=== PATIENT | female | born 1970 | race Caucasian/White ===

== ENCOUNTER → 2019-04-15 07:41 | Outpatient (CLI) | payer BC, SELFPAY ==
[2019-04-15 08:12] LABS: Absolute Lymphocyte Count 2.05 X10^3/uL (0.83-4.51); Absolute Neutrophil Count 4.4 X10^3/uL (2.0-7.7); Basophil# 0.04 X10^3/uL; Basophil% 0.5 % (0-1); Eosinophil# 0.24 X10^3/uL; Eosinophils% 3.2 % (0-5); Hematocrit 41.7 % (37-47); Hemoglobin 13.8 g/dL (12.0-15.0); Lymphocyte # 2.05 X10^3/ul (4.0); Lymphocyte % 27.7 % (19-41); Mean Corp Hgb Conc 33.1 g/dL (32-36); Mean Corpuscular Hgb 29.7 pg (27.0-32.0); Mean Corpuscular Volume 89.9 fL (81-99); Mean Platelet Vol. 9.7 fl (6.2-12.0); Monocyte# 0.62 X10^3/uL; Monocyte% 8.4 % (0-10); NRBC Flagged by Analyzer 0 % (0-5); Neutrophil # 4.41 X10^3/uL (2.7-7.7); Neutrophil % 59.7 % (47-70); Platelet Count 269 K/mm3 (150-450); RBC Distribution Width CV 12.6 % (11.6-14.6); RBC Distribution Width SD 41.7 fl (35.1-43.9); Red Blood Count 4.64 M/mm3 (4.2-5.4); White Blood Count 7.4 K/mm3 (4.4-11.0)
[2019-04-15 08:53] LABS: AST(SGOT) 25 U/L (15-37); Alanine Aminotransfer ALT/SGPT 35 U/L (13-56); Albumin, Serum 3.7 g/dL (3.2-5.0); Alkaline Phosphatase 56 U/L (45-117); Anion Gap 7 (5-15); BUN 10 mg/dL (7-18); BUN/Creat Ratio 12.9 RATIO (10-20); Calcium,Total 8.7 mg/dL (8.5-10.1); Chloride 106 mmol/L (98-107); Cholesterol 178 mg/dL (200); Creatinine, Serum 0.78 mg/dL (0.55-1.02); EST Glomerular Filtration Rate 84 mL/min (>60); Est Glom Filt Rate - Afr Amer 101 mL/min (>60); Globulin 3.7 g/dL (2.2-4.2); Glucose 78 mg/dL (74-106); High Density Lipoprotein 84 mg/dL; Protein, Total 7.4 g/dL (6.4-8.2); Sodium Level 141 mmol/L (136-145); Thyroid Stim Hormone (TSH) 1.12 uIU/mL (0.358-3.74); Triglycerides 57 mg/dL; Very Low Density Lipoprotein 11 mg/dL (5-40)
== END ==
PROVIDERS: Family Provider Family Medicine; PCP Family Medicine; Referring Provider Family Medicine; Visit Provider Family Medicine
DX: G47.9 Sleep disorder, unspecified (principal); J45.909 Unspecified asthma, uncomplicated; R51 Headache; R53.82 Chronic fatigue, unspecified
CPT/HCPCS: 36415; 80053; 80061; 84443; 85025

== ENCOUNTER → 2022-03-23 | Outpatient (CLI) | payer BC, SELFPAY ==
--- NOTE | 2022-03-23 07:25 | BI_ITS ---
MAMMOGRAPHY - BILATERAL SCREENING REASON FOR EXAM: Female, 51 years old. Routine annual screening examination. PERTINENT HISTORY: Aunt with breast cancer. TECHNIQUE: Digital bilateral breast valeri (3D mammographic acquisition) in the CC and MLO projections. 2-D mediolateral oblique (MLO) and craniocaudad (CC) views of both breasts were obtained. CAD: Full Field Digital Mammography with Computer Added Detection was performed. COMPARISON: Comparison is made with prior study of 05/31/2017 and 08/27/2015. FINDINGS: Breast Composition: The breasts are heterogeneously dense, which may obscure small masses. There are no dominant masses or suspicious calcifications. Stable small benign-appearing bilateral axillary lymph nodes. No other significant abnormalities are identified. There has been no significant change since the prior study. BI/SCRN MAMM (CAD)W/VALERI BILAT IMPRESSION: Stable bilateral screening mammogram. Yearly follow-up mammogram recommended. (A) ASSESSMENT CATEGORY: BIRADS Category 2: Benign. A letter regarding these results will be sent to the patient by the facility within 30 days. Approximately 10% of breast cancers are not detected by mammography. A normal mammogram should not delay biopsy of a clinically suspicious abnormality. [id number] Electronically Signed: Javier Esquivel MD at 8:09 EDT ,
== END | disposition home or self-care (01) ==
PROVIDERS: PCP Family Medicine
DX: Z12.31 Encounter for screening mammogram for malignant neoplasm of breast (principal)
CPT/HCPCS: 77063; 77067

== ENCOUNTER 2022-03-24 20:28 | Emergency (ER) | payer BC, SELFPAY ==
[2022-03-24 20:31] VITALS: BP 149/89; PULSE 76; RESP 17; TEMP 37.1; O2SAT 97; BMI 28.1
[2022-03-24] MEDS: DiphenhydrAMINE 25 MG Capsule 50 MG PO (21:58)
[2022-03-24] MEDS: predniSONE 20 MG Tablet 60 MG PO (21:59)
[2022-03-24] MEDS: Famotidine 20 MG Tablet PO (21:59)
--- NOTE | 2022-03-24 22:19 | EX.ED.DYSGE1 ---
HPI History of Present Illness Chief Complaint: Allergic Reaction Informant: patient Narrative Narrative: Bee sting right hand 90 minutes ago. Swelling hand itching up the arm. No lip or tongue swelling. No chest tightness. No trouble swallowing. History of anaphylaxis in 2008. Did not use epinephrine with concern it being . She brought herself here. Prior similar symptoms: Yes [facility] Medical History Active asthma Home Medications albuterol sulfate 90 mcg/actuation aerosol inhaler 2 puff inhalation Q6H PRN 12/05/19 [History Last Taken Unknown] fluticasone furoate 27.5 mcg/actuation nasal spray,suspension (Flonase Sensimist) 2 spray intranasal DAILY 12/05/19 [History Last Taken Unknown] norethindrone (contraceptive) 0.35 mg tablet (Brionna) 0.35 mg PO QDAY #84 tabs 03/19/20 [Rx Last Taken Unknown] famotidine 20 mg tablet (Pepcid) 20 mg PO BID #10 tabs 03/24/22 [Rx Last Taken Unknown] prednisone 20 mg tablet 60 mg PO DAILY #12 tabs 03/24/22 [Rx Last Taken Unknown] Allergy/AdvReac Type Severity Reaction Status Date / Time bee pollen Allergy Anaphylaxis Verified 03/24/22 20:31 Surgical History History of cholecystectomy Social History Smoking Status: Never smoker alcohol intake: current alcohol intake frequency: holidays/special occasions only seatbelt use: always do you feel safe at home: Yes ROS ROS ED Constitutional Constitutional ED: Denies chills, fever(s) or sweats Eyes Eyes: Denies change in vision ENT ENT ED: Denies dysphagia or sore throat Cardiovascular Cardiovascular: Denies chest pain, leg edema, palpitations or racing heartbeat Respiratory/Chest Respiratory/Chest: Denies cough, dyspnea or dyspnea on exertion Gastrointestinal Gastrointestinal: Denies abdominal pain, diarrhea, nausea or vomiting Genitourinary Genitourinary ED: Denies dysuria, hematuria or urinary frequency Musculoskeletal Musculoskeletal: Reports extremity pain and other Details: Right hand swelling with itching ; Denies back pain or neck pain Integumentary Denies rash or wounds Neurologic Neurologic: Denies headache(s), paresthesias or weakness EXAM Physical Exam Const Vital Signs: 03/24/22 20:31 03/24/22 22:29 03/24/22 23:56 Temperature 98.7 F Temperature Source Temporal Pulse Rate 76 76 Respiratory Rate 17 15 16 Blood Pressure 149/89 H Blood Pressure Mean 109 Pulse Ox 97 97 Oxygen Delivery Method Room Air Room Air Positive well nourished and well developed General Appearance ED: well developed and NAD HEENT Reports moist mucous membranes HEENT Narrative: Airway patent no lip or tongue swelling. No stridor. normocephalic and atraumatic Eyes PERRL, EOMs intact bilaterally and conjunctivae normal General Eye ED: Yes normal appearance of both eyes Neck no lymphadenopathy and supple General: Negative for tenderness Chest Wall Chest: Negative for tenderness Resp normal respiratory effort and normal air movement Effort and Inspection: symmetric chest movement; Negative for respiratory distress Cardio regular rate, regular rhythm and no murmurs Peripheral Pulses: pulses 2+ throughout GI normal to inspection, nondistended, normoactive bowel sounds and non-tender Palpation: Negative for guarding or rebound tenderness present Back/Spine no CVA tenderness and no thoracic nor lumbar tenderness Extremity Extremity Narrative: Right upper extremity: Swelling to right hand, no stinger present noted puncture at the dorsum of the proximal phalanx of the index finger. There is erythema up the arm to the shoulder. General Extremety ED: Negative for edema or tenderness General Extremity: Negative for edema Neuro oriented x3 and no sensory deficits noted Sensorium / Orientation: awake and alert Skin no rashes or lesions noted and no wounds MDM MDM MDM Narrative Medical decision making narrative: No signs of anaphylaxis 90 minutes from incident. Local swelling redness of the right arm. Oral prednisone, Pepcid, Benadryl was given monitored no progression of symptoms. Prescription for prednisone and Pepcid written she has Benadryl at home. Discussed writing for epinephrine pen however she declines it stating is too expensive. She understands she can call 911 if anaphylaxis occurs in the future. She will follow-up as an outpatient. All questions were answered. Discharge Plan Triage Chief Complaint: Allergic Reaction ED Provider: Emery Calderon Dx/Rx/DC Orders Clinical Impression: Local reaction to bee sting, Localized swelling of finger of right hand Prescriptions: New prednisone 20 mg tablet 60 mg PO DAILY Qty: 12 0RF famotidine [Pepcid] 20 mg tablet 20 mg PO BID Qty: 10 0RF No Action Flonase Sensimist 27.5 mcg/actuation spray,suspension 2 spray INTRANASAL DAILY Rx Instructions: into each nostril albuterol sulfate 90 mcg/actuation HFA aerosol inhaler 2 puff INHALATION Q6H PRN norethindrone (contraceptive) [Brionna] 0.35 mg tablet 0.35 mg PO QDAY Qty: 84 4RF Rx Instructions: start day 1 of menstrual cycle Primary Care Provider: FLORENCE TAVERA Referrals: Tesfaye Lopes DO [Med Staff - Upholstery Repairer] - 1-2 Weeks Disposition Disposition: Home, Self Care Discharge Date/Time: 03/24/22 23:57
[2022-03-24 22:29] VITALS: RESP 15
[2022-03-24 23:56] VITALS: PULSE 76; RESP 16; O2SAT 97
== END 2022-03-24 23:57 | disposition home or self-care (01) ==
PROVIDERS: Emergency Provider Emergency Medicine; Visit Provider Emergency Medicine
DX: T63.444A Toxic effect of venom of bees, undetermined, initial encounter (principal); J45.909 Unspecified asthma, uncomplicated
CPT/HCPCS: 99282

== ENCOUNTER → 2022-09-30 | Outpatient (CLI) | payer BC, SELFPAY ==
[2022-10-02 00:07] LABS: Chlamydia By Nucleic Acid AMP Negative (Negative)
[2022-10-02 08:29] LABS: Gonococcus By Nucleic Acid AMP Negative (Negative)
[2022-10-05 16:45] LABS: HPV APTIMA, High Risk Negative (Negative)
== END | disposition home or self-care (01) ==
LOC: LABSPEC 10:24
PROVIDERS: Referring Provider Nurse Practitioner Women's Health; Visit Provider Nurse Practitioner Women's Health
DX: Z12.4 Encounter for screening for malignant neoplasm of cervix (principal); Z11.3 Encounter for screening for infections with a predominantly sexual mode of transmission
CPT/HCPCS: 87491; 87591; 87624; 88175; G0145

== ENCOUNTER → 2023-03-19 | Outpatient (CLI) | payer BC, SELFPAY ==
--- NOTE | 2023-03-19 14:30 | EMB_PTH ---
PATIENT: BELLA WARD LOC: [facility] U#:[id number] AGE/SX: 52/F ROOM: RE03/19/[address]: Kathie Holt CNM : 1970 BED: DIS: 03/19/2023 SPEC #: [id number] RECD: 03/19/23 16:23 STATUS: PEDRO SONIA #: [id number] SANDRA: 03/19/23 14:[address]: Kathie Holt DEPT: SURGICAL PATHOLOGY RECD BY: Diane Saunders Tissues: Endometrium, NOS Procedures: Surgery Specimen Level IV HEADER OPERATION: Endometrial biopsy PRE-OP DIAGNOSIS: Postmenopausal bleeding TISSUE SUBMITTED: Endometrial tissue MICROSCOPIC DIAGNOSIS Endometrial biopsy: Secretory endometrium. SJ:felicia 03/23/2023 MICROSCOPIC DESCRIPTION Slides are reviewed. GROSS DESCRIPTION Received is one container labeled with the patient's name and not further designated. The specimen consists of multiple fragments of hemorrhagic soft tissue that in aggregate measure 1.5 x 0.7 x 0.1 cm. The specimen is totally submitted in one cassette. / TAZ:felicia 03/22/2023 TC:5 CPT: 15478
== END | disposition home or self-care (01) ==
LOC: LABSPEC 03-22 11:38
PROVIDERS: Visit Provider Advanced Practice Midwife
DX: N95.0 Postmenopausal bleeding (principal)
CPT/HCPCS: 88305

== ENCOUNTER → 2023-03-25 | Outpatient (CLI) | payer BC, SELFPAY ==
--- NOTE | 2023-03-25 07:03 | BI_ITS ---
MAMMOGRAPHY - BILATERAL SCREENING REASON FOR EXAM: Female, 52 years old. Routine annual screening examination. PERTINENT HISTORY: Aunt with breast cancer. TECHNIQUE: Digital bilateral breast valeri (3D mammographic acquisition) in the CC and MLO projections. 2-D mediolateral oblique (MLO) and craniocaudad (CC) views of both breasts were obtained. CAD: Full Field Digital Mammography with Computer Added Detection was performed. COMPARISON: Comparison is made with prior study March 23, 2022 and May 31, 2017. FINDINGS: Breast Composition: The breasts are heterogeneously dense, which may obscure small masses. There are no dominant masses or suspicious calcifications. Stable small benign-appearing bilateral axillary lymph nodes. No other significant abnormalities are identified. There has been no significant change since the prior study. BI/SCRN MAMM (CAD)W/VALERI BILAT IMPRESSION: Stable bilateral screening mammogram. Yearly follow-up mammogram recommended. (A) ASSESSMENT CATEGORY: BIRADS Category 2: Benign. A letter regarding these results will be sent to the patient by the facility within 30 days. Approximately 10% of breast cancers are not detected by mammography. A normal mammogram should not delay biopsy of a clinically suspicious abnormality. [id number] Electronically Signed: Javier Esquivel MD at 8:39 EDT ,
== END | disposition home or self-care (01) ==
LOC: OPBI 07:02
PROVIDERS: PCP Family Medicine; Referring Provider Nurse Practitioner Women's Health; Visit Provider Nurse Practitioner Women's Health
DX: Z12.31 Encounter for screening mammogram for malignant neoplasm of breast (principal)
CPT/HCPCS: 77063; 77067

== ENCOUNTER → 2023-04-05 | Outpatient (CLI) | payer BC, SELFPAY ==
--- NOTE | 2023-04-05 16:59 | US_ITS ---
STUDY: ULTRASOUND OF THE FEMALE PELVIS - COMPLETE REASON FOR EXAM: Female, 52 years old. PMB LMP: Patient is postmenopausal. TECHNIQUE: Transvaginal TECHNICAL QUALITY: Adequate. COMPARISON: None. FINDINGS: The uterus is anteverted and is in a midline position. The uterus measures 7.6 cm x 5.1 cm x 4.7 cm. Normal uterine cervix. The endometrium measures 2.9 mm in thickness, and is hyperechoic. There is a 1.7 cm x 1.3 cm x 1.1 cm echogenic nodule in the endometrium with vascularity. Biopsy is recommended. There is no demonstrated myometrial mass. I.U.D. - The patient does not have an I.U.D. The right ovary is visualized. The right ovary measures 2.4 cm x 2 cm x 1.3 cm. There is no right ovarian cyst or ovarian mass. There is no visualized right adnexal mass or complex lesion. There is normal arterial and normal venous vascularity. The left ovary is visualized. The left ovary measures 2.9 cm x 1.5 cm x 1.4 cm. A dominant follicle is seen in the left ovary measuring 1.2 cm x 1.57 x 1.3 centimeter. There is no visualized left adnexal mass or complex lesion. There is normal arterial and normal venous vascularity. There is no fluid in the cul-de-sac. US/Transvaginal Non- IMPRESSION: 1.7 cm x 1.3 cm x 1.1 cm echogenic nodule in the endometrium with vascularity. Biopsy recommended. Electronically Signed: Javier Esquivel MD at 10:47 EDT ,
== END | disposition home or self-care (01) ==
LOC: US 16:57
PROVIDERS: PCP Family Medicine; Referring Provider Advanced Practice Midwife; Visit Provider Advanced Practice Midwife
DX: N95.0 Postmenopausal bleeding (principal)
CPT/HCPCS: 76830

== ENCOUNTER 2023-06-15 06:02 | Day surgery (SDC) | payer BC, SELFPAY ==
[2023-06-07 08:17] LABS: Absolute Lymphocyte Count 2.02 X10^3/uL (0.83-4.51); Absolute Neutrophil Count 2.9 X10^3/uL (2.0-7.7); Basophil# 0.03 X10^3/uL; Basophil% 0.5 % (0-1); Eosinophil# 0.19 X10^3/uL; Eosinophils% 3.3 % (0-5); Hematocrit 38.6 % (37-47); Lymphocyte # 2.02 X10^3/ul (0.83-4.51); Lymphocyte % 34.8 % (19-41); Mean Corp Hgb Conc 33.7 g/dL (32-36); Mean Corpuscular Hgb 29.5 pg (27.0-32.0); Mean Corpuscular Volume 87.7 fL (81-99); Mean Platelet Vol. 10.2 fl (6.2-12.0); Monocyte# 0.65 X10^3/uL; Monocyte% 11.2 % (0-10); NRBC Flagged by Analyzer 0 % (0-5); Neutrophil % 49.9 % (47-70); Platelet Count 234 K/mm3 (150-450); RBC Distribution Width SD 41.4 fl (35.1-43.9); White Blood Count 5.8 K/mm3 (4.4-11.0)
--- NOTE | 2023-06-14 07:30 | EMB_PTH ---
PATIENT: BELLA WARD LOC: [facility] [place] U#:[id number] AGE/SX: 52/F ROOM: RE06/15/[address]: Dr. Fide Berry MD : 1970 BED: DIS: 06/15/2023 SPEC #: [id number] RECD: 06/15/23 12:12 STATUS: PEDRO SONIA #: [id number] SANDRA: 06/14/23 07:[address]: Fide Berry DEPT: SURGICAL PATHOLOGY RECD BY: Saida Blanc ENTERED: 06/15/23 12:12 SP TYPE: ENDOM BX/C OTHR DR: FLORENCE TAVERA MD Tissues: Endometrium, NOS Procedures: Surgery Specimen Level IV HEADER OPERATION: Hysteroscopy, D & C PRE-OP DIAGNOSIS: Postmenopausal bleeding TISSUE SUBMITTED: Endometrial curettings MICROSCOPIC DIAGNOSIS Endometrium, curettings: Scant strips of benign superficial glandular and squamous mucosa. AM:felicia 06/16/2023 MICROSCOPIC DESCRIPTION Slides are reviewed. GROSS DESCRIPTION Received in fixative is one container labeled with the patient's name and designated endometrial curettings. The specimen consists of multiple irregular fragments of light to dark olsen soft tissue that in aggregate measure 1.0 x 0.3 x 0.1 cm. The specimen is totally submitted in one cassette. / AM:felicia 06/15/2023 TC:5 CPT: 06459
[2023-06-15 06:35] VITALS: BP 122/72; PULSE 75; RESP 16; TEMP 36.4; O2SAT 96; BMI 29.1
[2023-06-15] MEDS: Lactated Ringers 1,000 ML 15 ML IV (06:41)
--- NOTE | 2023-06-15 07:22 | HP.PCM_ITS ---
History and Physical Date of Admission: 06/15/23 Vital Signs 04/06/2310:46 05/31/2311:20 05/31/2311:21 Height 5 ft 8 in 5 ft 8 in 5 ft 8 in Weight: 196 lb 6 oz BMI 29.8 BP 135/85 H Intake Visit Reasons: D&C symphion Credit Card Specialist Required: No Is patient in pain?: No Allergies bee pollen Allergy (Verified 05/31/23 11:20) Anaphylaxis Medications albuterol sulfate 90 mcg/actuation aerosol inhaler 2 puff inhalation Q6H PRN 07/14 [History Confirmed 05/31/23] fluticasone furoate 27.5 mcg/actuation nasal spray,suspension (Flonase Sensimist) 2 spray intranasal DAILY 12/05/19 [History Confirmed 05/31/23] montelukast 10 mg tablet (Singulair) 10 mg PO DAILY 09/30/22 [History Confirmed 05/31/23] beclomethasone dipropionate 40 mcg/actuation HFA breath activated aerosol (Qvar RediHaler) 1 inh inhalation BID 03/19/23 [History Confirmed 05/31/23] clonidine HCl 0.1 mg tablet 0.1 mg PO BID 03/19/23 [History Confirmed 05/31/23] Is last menstrual period known: No Post menopausal: Yes Patient : No : No PFSH Medical History Active asthma Surgical History History of cholecystectomy Family History Mother Cancer Melanoma Social History housing: house number of children: 2 current occupational status: employed 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 Female Reproductive History Menopausal Symptoms: No night sweats History 3 Elective abortions Hx Para 2 Spontaneous abortions Hx # Term Pregnancies Ectopic pregnancies Hx # Pregnancies Multiple births # of living children 2 ROS Const Constitutional: Denies fatigue, night sweats, weight gain or weight loss ENT ENT: Reports system reviewed and no additional complaints, except as documented Cardio Card: Denies chest pain Resp Resp: Denies cough or dyspnea GI GI: Reports as per HPI; Denies abdominal pain, constipation, nausea or vomiting : Denies nipple discharge, urinary frequency, urinary incontinence, urinary hesitancy, urinary urgency, vaginal discharge, vaginal dryness, vaginal odor or vaginal pruritus Musc Musc: Denies arthralgias, back pain or muscle weakness Skin Skin/Breast: Denies alopecia, change in hair, dry skin, breast mass, breast pain, breast skin changes or nipple discharge Neuro Neuro: Reports system reviewed and no additional complaints, except as documented Psych Psych: Reports system reviewed and no additional complaints, except as documented Endo Endo: Denies cold intolerance, excessive sweating, heat intolerance or polydipsia Campos/Lymph Hematologic/Lymphatic: Denies easy bleeding, Denies easy bruising and Denies lymphadenopathy Exam Const General: cooperative, healthy appearing, comfortable and no acute distress Orientation: alert [facility] Head: normal to inspection and normocephalic Ears: hearing grossly normal bilaterally and external ears normal Nose: external nose normal and nares normal Face and sinus: normal facial exam Neck Neck: normal visual inspection and no lymphadenopathy Thyroid: thyroid normal Chest Chest palpation & inspection: normal inspection of the chest Resp Effort & Inspection: normal respiratory effort Auscultation: clear to auscultation bilaterally Cardio Rate: regular rate Rhythm: regular rhythm Heart Sounds: S1 normal and S2 normal GI Inspection: normal to inspection and non-distended Palpation: soft and no hepatosplenomegaly Musc Other: gross motor intact no deficits, full bilateral strength Skin General: no rashes or lesions noted Neuro General: patient alert, patient awake, moves all extremities and no focal motor deficits Motor: muscle tone normal throughout Extrem General: normal to inspection and no pedal edema Psych Appearance: grossly normal Mental Status: mental status grossly normal Affect: normal affect Speech and Movement: speech and movement normal Coding Level of Care Code No Charge Diagnoses Postmenopausal bleeding N95.0 Climacteric N95.1 Assessment and Plan Assessment and Plan (1) Postmenopausal bleeding: Status: Acute Comment: polypoid lining- plan d and c hysteroscopy symphion (2) Climacteric: Status: Acute Comment: clonadine per neurologist Plan After discussing the patient's diagnosis and treatment plan options, patient wishes to proceed with surgical management. I have discussed with the patient the risks, benefits, and alternatives of the procedure which include but are not limited to risks of anesthesia, bleeding, infection, possible damage to bowel, bladder, or surrounding vasculature which could lead to additional surgery to evaluate any complications. Patient agrees to procedure and wishes to proceed. ACOG/uptodate references given for additional information regarding procedure. UPDATE- I have seen the patient and performed any clinically relevant updates to the history and physical exam. Fide Berry MD
--- NOTE | 2023-06-15 07:23 | OP.PCM_ITS ---
Problems Associated Problem List Diagnoses (1) Postmenopausal bleeding: Report of Operation Date of Procedure: 06/15/23 Pre-Operative Diagnosis: see problem list Post-Operative Diagnosis: same Surgery/Procedure Performed:: D&C hysteroscopy Description of Surgical Findings:: atrophic lining Surgeon: Fide Berry aboriginal liaison officer: None Type of Anesthesia: Local MAC Special Medications: none Specimen's removed: EMC Drains: none Estimated Blood Loss (mL): 50 Fluids Replaced: crystalloid Description of Procedure: Patient was prepped and draped in a normal sterile fashion under MAC anesthesia. A weighted speculum was placed in the vagina and the anterior lip of the cervix was grasped with a single-tooth tenaculum. A paracervical block was placed with 1% lidocaine. Cervix was progressively dilated to allow passage of a 5 mm hysteroscope. The lining was fully visualized and noted to have an atrophic thin lining . Uterine sounded to 8 cm. Curettage was performed and a small amount of tissue removed , sent to pathology. All instruments were removed from the vagina and excellent hemostasis was noted. Patient was awoken and taken to recovery in stable condition. Grafts/Implants Used: none Complications none Admit VTE Documentation VTE Present on Admission: No VTE Mechan Device Prophylaxis: SCD's Multi Select Codes Urinary/Genital Urinary/Genital CPT Codes: 03360 Hysteroscopy, diagnostic
[2023-06-15] MEDS: Lidocaine 1% (20 ml mdv) 20 ML Vial (07:52)
--- NOTE | 2023-06-15 07:53 | DCINST_ITS ---
Discharge Instructions Diet Discharge Diet: No restrictions Activity Discharge Activity: Return to Normal Activity, May Shower and May Take a Tub Bath (after 1 week) May resume sexual activity in: 1-2 weeks Weight Bearing Status: Weight bearing as tolerated Lifting Restrictions: none Dressing / Incision Call your doctor if you observe: Fever of 101 or Higher, Using more than 1 pad per hour, Shortness of breath and Uncontrolled pain Follow Up Care Please Follow Up With: Fide Berry MD When: Call [phone] to schedule appointment. Test Results: Test results from this visit will be discussed in further detail at your follow- up appointment, if applicable. Discharge Plan Admission Attending Provider: Fide Berry Primary Care Provider: FLORENCE TAVERA Discharge Orders/Prescriptions Prescriptions: No Action Flonase Sensimist 27.5 mcg/actuation spray,suspension 2 spray INTRANASAL DAILY PRN (Reason: nasal congestion) Rx Instructions: into each nostril albuterol sulfate 90 mcg/actuation HFA aerosol inhaler 2 puff INHALATION Q6H PRN (Reason: shortness of breath or wheezing) montelukast [Singulair] 10 mg tablet 10 mg PO DAILY PRN (Reason: SEASONAL ALLERGIES) clonidine HCl 0.1 mg tablet 0.1 mg PO BID Qvar RediHaler 40 mcg/actuation HFA aerosol breath activated 1 inh inhalation BID amitriptyline 10 mg tablet 10 mg PO QHS Referrals / Follow Up: FLORENCE TAVERA MD [Primary Care Provider] - Disposition Disposition (needs filled in before D/C Order can be placed): Home, Self Care
[2023-06-15 07:57] VITALS: BP 110/66; BP 122/72; PULSE 78; RESP 16; TEMP 36.2; O2SAT 94
[2023-06-15 08:00] VITALS: BP 110/68; BP 122/72; PULSE 73; RESP 16; O2SAT 96
[2023-06-15 08:05] VITALS: BP 118/74; BP 122/72; PULSE 73; RESP 16; O2SAT 96
[2023-06-15 08:19] VITALS: BP 113/81; BP 122/72; PULSE 64; RESP 16; TEMP 36.3; O2SAT 100
[2023-06-15] MEDS: Ketorolac 30 MG/ML Syringe IM (08:19)
[2023-06-15 09:01] VITALS: BP 122/72
== END 2023-06-15 09:04 | disposition home or self-care (01) ==
LOC: SDC 06:02 → AC 06:03
PROVIDERS: PCP Family Medicine; Referring Provider Obstetrics & Gynecology; Visit Provider Obstetrics & Gynecology
PROC: 0UB98ZZ Excision of Uterus, Via Natural or Artificial Opening Endoscopic (ICD-10-PCS; CPT 58558; principal; 2023-06-15 07:15)
DX: N95.0 Postmenopausal bleeding (principal); J45.909 Unspecified asthma, uncomplicated; Z90.49 Acquired absence of other specified parts of digestive tract; Z79.899 Other long term (current) drug therapy
CPT/HCPCS: 58558; 00952; 36415; 85025; 86850; 86900; 86901; 88305; J7120; J2405

== ENCOUNTER → 2024-03-28 | Outpatient (CLI) | payer BC, SELFPAY ==
--- NOTE | 2024-03-28 07:11 | BI_ITS ---
MAMMOGRAPHY - BILATERAL SCREENING REASON FOR EXAM: Female, 53 years old. Routine annual screening examination. PERTINENT HISTORY: Aunt with breast cancer. TECHNIQUE: Digital bilateral breast valeri (3D mammographic acquisition) in the CC and MLO projections. 2-D mediolateral oblique (MLO) and craniocaudad (CC) views of both breasts were obtained. CAD: Full Field Digital Mammography with Computer Added Detection was performed. COMPARISON: Comparison is made with prior study dated March 25, 2023 and March 23, 2022. FINDINGS: Breast Composition: The breasts are heterogeneously dense, which may obscure small masses. There are no dominant masses or suspicious calcifications. Stable small benign-appearing bilateral axillary lymph nodes. No other significant abnormalities are identified. There has been no significant change since the prior study. BI/SCRN MAMM (CAD)W/VALERI BILAT IMPRESSION: Stable bilateral screening mammogram. Yearly follow-up mammogram recommended. (A) ASSESSMENT CATEGORY: BIRADS Category 2: Benign. A letter regarding these results will be sent to the patient by the facility within 30 days. Approximately 10% of breast cancers are not detected by mammography. A normal mammogram should not delay biopsy of a clinically suspicious abnormality. [id number] Electronically Signed: Javier Esquivel MD at 7:58 EDT ,
== END | disposition home or self-care (01) ==
PROVIDERS: PCP Family Medicine; Referring Provider Nurse Practitioner Women's Health; Visit Provider Nurse Practitioner Women's Health
DX: Z12.31 Encounter for screening mammogram for malignant neoplasm of breast (principal); Z80.3 Family history of malignant neoplasm of breast
CPT/HCPCS: 77063; 77067

== ENCOUNTER → 2024-11-09 | Outpatient (CLI) | payer BC, SELFPAY ==
--- NOTE | 2024-11-09 15:44 | RAD_ITS ---
PROCEDURE: CHEST PA AND LATERAL 11/09/2024 REASON FOR EXAM: COUGH WITH SHORTNESS OF BREATH TECHNIQUE: Frontal and lateral views of the chest. COMPARISON: None FINDINGS: Heart: The heart size is normal. Mediastinum: The mediastinal contour is unremarkable. Lungs: The lungs are clear. RAD/Chest PA and Lateral IMPRESSION: NO ACUTE FINDINGS. Reading [facility]
== END | disposition home or self-care (01) ==
LOC: MTRAD 15:42
PROVIDERS: PCP Family Medicine; Referring Provider Physician Assistant Surgical; Visit Provider Physician Assistant Surgical
DX: J20.9 Acute bronchitis, unspecified (principal); R06.02 Shortness of breath; R05.9 Cough, unspecified
CPT/HCPCS: 71046